=== PATIENT | male | born 1975 | race Caucasian/White ===

== ENCOUNTER 2019-04-02 07:29 | Outpatient (CLI) | payer OTHER ==
--- NOTE | 2019-04-02 08:57 | MRI ---
BRAIN MRI WITH AND WITHOUT CONTRAST: Date: 04/02/19 COMPARISON: None. HISTORY: Numbness and tingling, dizziness, upper extremity weakness. TECHNIQUE: Multiplanar, multisequence MR imaging of the brain is provided with and without contrast. FINDINGS: The diffusion-weighted imaging demonstrates no evidence for acute infarction. The axial gradient echo imaging demonstrates no evidence for intracranial hemorrhage. No midline shift or mass effect is see n. No ventricular enlargement. Arterial flow-voids at the axial level of the skull base appear grossly unremarkable on the T2-weight ed imaging. The imaged paranasal sinuses and mastoid air cells appear well aerated. The postcontrast imaging demonstrates no abnormal enhancement within the brain parenchyma. IMPRESSION: Unremarkable contrast enhanced brain MRI. POS: [facility]
== END 2019-04-02 07:30 | disposition home or self-care (01) ==
LOC: SCSMRI 07:29
PROVIDERS: ATTEND Nurse Practitioner Adult Health
DX: R42 Dizziness and giddiness (principal); R29.898 Other symptoms and signs involving the musculoskeletal system; R20.0 Anesthesia of skin
CPT/HCPCS: 70553

== ENCOUNTER 2019-11-06 14:49 | Outpatient (CLI) | payer OTHER ==
--- NOTE | 2019-11-06 15:45 | ULT ---
Thyroid sonogram HISTORY: Enlarged thyroid. No mass. FINDINGS: Right thyroid lobe measures up to 4.7 cm length and has a slightly heterogeneous echotexture. At leas t 3 tiny nonspecific oval hypoechoic nodules are present, measuring up to 0.5 cm greatest diameter. Isthmus is 0.6 cm thick. Left thyroid lobe measures up to 4.5 cm with a homogeneous echotexture. Along the anterior margin is a well-circumscribed oval predominantly isoechoic solid nodule that is 0.7 cm length by 0.3 cm depth. Posterior acoustic enhancement. IMPRESSION : Tiny nonspecific bilateral thyroid nodules. No aggressive abnormalities are demonstrated.
== END 2019-11-06 14:50 | disposition home or self-care (01) ==
LOC: SCSULT 14:49
PROVIDERS: ATTEND Nurse Practitioner Adult Health
DX: E04.2 Nontoxic multinodular goiter (principal)
CPT/HCPCS: 76536